=== PATIENT | male | born 1955 | race Two or more races ===

== ENCOUNTER 2016-12-25 12:04 | Emergency (ER) | payer OTHER ==
[~2016-12-25] VITALS: Ht 170.2 cm; Wt 79.0 kg
[~2016-12-25 12:04] MED LIST: ATOR20TA9 PO; NORT10CA PO; PRIM50TA PO; TAMS0.4C2 PO; TEST200K PO
[2016-12-25 12:09] VITALS: BP 136/81
== END 2016-12-25 14:31 | disposition left against medical advice (07) ==
LOC: ED 12:43
DX: S01.81XA Laceration without foreign body of other part of head, initial encounter (principal); S80.02XA Contusion of left knee, initial encounter; L03.211 Cellulitis of face; W19.XXXA Unspecified fall, initial encounter; Y93.89 Activity, other specified; Y92.89 Other specified places as the place of occurrence of the external cause; Y99.8 Other external cause status
CPT/HCPCS: 99284

== ENCOUNTER 2020-07-08 16:18 | Emergency (ER) | payer OTHER ==
[~2020-07-08] VITALS: Ht 170.2 cm; Wt 82.7 kg
[~2020-07-08 16:18] MED LIST changes: +ATOR20TA37 PO; -ATOR20TA9 PO
[2020-07-08 16:28] VITALS: BP 135/80
--- NOTE | 2020-07-08 16:38 | NUR ---
INITIAL PT CONTACT. PT STATES HE WAS AT THE BAR TODAY AND SITTING ON A BAR STOOL AND HAD A "SUDDEN SHOOT OF PAIN THAT WENT THROUGHT MY WHOLE RIGHT HIP AND LEG. I ALSO FEEL LIKE MY RIGHT KNEE DOESNT HINGE RIGHT NOW". PT STATES NONE OF THESE SYMPTOMS ARE PRESENT NOW, THEY HAVE ALL RESOLVED. PT AMBULATORY TO ROOM. PT DENIES ANY ADDITIONAL NEEDS AT THIS TIME. ERP AT BEDSIDE. CALL LIGHT WITHIN REACH, FALL PRECAUTIONS IN PLACE.
--- NOTE | 2020-07-08 17:13 | NUR ---
Patient given discharge instructions and they have confirmed that they understand the instructions. Patient ambulatory with steady gait.
== END 2020-07-08 17:14 | disposition home or self-care (01) ==
LOC: ED 16:55
DX: M54.5 Low back pain (principal); M25.551 Pain in right hip; E78.00 Pure hypercholesterolemia, unspecified
CPT/HCPCS: 99281